=== PATIENT | male | born 1990 | race Two or more races ===

== ENCOUNTER → 2024-10-18 | Outpatient (CLI) | payer OTHER, SELFPAY ==
--- NOTE | 2024-10-18 16:00 | XR_ITS ---
Examination: MRI brain without intravenous contrast. Date and time of exam: October 18, 2024, 1618 hours INDICATIONS: Seizure August 21, 2024, headaches years Technique: Multiple axial and sagittal images of the brain obtained. Siemens high-resolution 1.5 Monique short bore scanners utilized. Sagittal sections, T1-weighted, TR 500, TE 14, are performed. Axial sections proton-density and T2-weighted have been obtained. Inversion recovery axial images, TR 9, 260, TE 111, TI 2500. Diffusion weighted images, axial sections, TR 4800, TE 128, B value 1000 Axial sections, ADC map, TR 4800, TE 128 Findings: Enlargement of the sella turcica is not present. The optic chiasm and infundibular are not remarkable. Prepontine and interpeduncular cisterns are not enlarged. There is no localized enlargement of the medulla or dave. Fourth ventricle and cerebellar tonsils appear normal in position. No subacute area of hemorrhage density is seen. Mass in the cerebellopontine angle region is not evident. Globes symmetrical. Orbital musculature including medial lateral rectus muscles do not exhibit abnormality. Diffusion-weighted images demonstrate no focus of restricted diffusion.. Increased white matter signal not seen. Mass effect upon the ventricular system is not identified. Impression: Negative for acute hemorrhage mass effect or midline shift No acute infarct No MR findings diagnostic for demyelinating disease
== END | disposition home or self-care (01) ==
LOC: SMRI 15:45
PROVIDERS: Referring Provider Nurse Practitioner Primary Care; Visit Provider Nurse Practitioner Primary Care
DX: G40.89 Other seizures (principal)
CPT/HCPCS: 70551

== ENCOUNTER 2024-10-24 04:34 | Emergency (ER) | payer OTHER, SELFPAY ==
[2024-10-24 04:35] VITALS: BP 115/65; PULSE 110; RESP 17; TEMP 36.5; O2SAT 95
--- NOTE | 2024-10-24 04:35 | EDNOTE_ITS ---
ED Seizures RME/HPI General Stated Complaint: SEIZURES Arrival date/time: 10/24/24 04:34 RME / HPI RME / HPI Narrative: This section includes all my notes and documentations, including HPI, PE, and ED course. Ben Varela MD HPI: 34yo male ANNE from home here after a seizure. Per EMS, patient was found to be shaking and posturing in bed witnessed by his just BUSINESS INTELLIGENCE ETL DEVELOPER. First seizure occurred about a month ago. He is not on any seizure medications. Patient currently has a headache. No tongue biting or incontinence. Brain MRI was negative several days ago. No other complaints reported. ROS: All negative except as documented in HPI. Physical Exam: General: Alert and oriented. No acute distress when remaining still. Eyes: Conjunctivae and lids clear. ENT: No nasal congestion. Neck: Supple. Heart: RRR. Lungs: No respiratory distress. Good air movement. No rhonchi, wheezing, rales. Abdomen: Soft and nontender. Normal bowel sounds. No distension. No rebound or guarding. Back: No CVA tenderness. Skin: Warm and dry. Neuro: Alert and oriented X 3. Cranial nerves II to XII grossly normal. No peripheral motor deficits. I reviewed EMS notes. I ordered diagnostic tests, Tylenol with Codeine, NS, Toradol, Keppra, and Zofran. At 6 AM on 10/24/2024, the care of the patient was transferred to Dr. Barreto. Ben Varela MD Related Data Previous Rx's ?Medication ?Instructions ?Recorded penicillin V potassium 500 mg 500 mg PO QID ##40 09/20 tablet Review of Systems Review of Systems Systems Reviewed: All systems reviewed, normal except as documented ED Exam Narrative Physical exam: As noted in HPI. Course Quality Measures none Orders Category Date Time Status Bedside COVID-19 Antigen Test NOW Care 10/24/24 04:37 Active Bedside Influenza A&B Antigen Test NOW Care 10/24/24 04:37 Active EKG (ED ONLY) *Do not use* NOW Care 10/24/24 04:38 Active Saline [Insert IV] NOW Care 10/24/24 04:37 Active Straight [In and Out Catheter] X1 Care 10/24/24 04:37 Active EKG (ED Only) Stat Exams 10/24/24 04:38 Ordered Alcohol, Blood Medical Stat Lab 10/24/24 04:58 Received BMP [Basic Metabolic Panel] Stat Lab 10/24/24 04:58 Received CBC Stat Lab 10/24/24 04:58 Received Drug Screen,Urine Stat Lab 10/24/24 04:38 Ordered Magnesium Stat Lab 10/24/24 04:58 Received Troponin I Stat Lab 10/24/24 04:58 Received ACETAMINOPHEN w/COD 300-30 [Tylenol w/Cod #3] Med 10/24/24 04:37 Pending 2 tab PO X1 ONE Ketorolac Inj [Toradol Inj] Med 10/24/24 04:37 Once 30 mg IVP X1 ONE Ondansetron Inj [Zofran Inj] Med 10/24/24 04:37 Once 4 mg IVP X1 ONE Sodium Chloride 0.9% 1000 ml [Ns] 1,000 ml Med 10/24/24 04:37 Ordered IV 999 mls/hr levETIRAcetam INJ [Keppra Inj] Med 10/24/24 04:37 Once 2,000 mg IVP X1 ONE Vital Signs Vital signs: Vital Signs Temperature 97.7 F 10/24/24 04:35 Pulse Rate 110 H 10/24/24 04:35 Respiratory Rate 17 10/24/24 04:35 Blood Pressure 115/65 10/24/24 04:35 Pulse Oximetry (%) 95 10/24/24 04:35 Oxygen Delivery Method Room Air 10/24/24 04:35 Seizure MDM Narrative MDM Narrative:: 34yo male BIBA from home here after a seizure. Per EMS, patient was found to be shaking and posturing in bed witnessed by his just BUSINESS INTELLIGENCE ETL DEVELOPER. First seizure occurred about a month ago. He is not on any seizure medications. Patient currently has a headache. No tongue biting or incontinence. Brain MRI was neg ative several days ago. No other complaints reported. Patient data External records reviewed:: [facility] previous records (Per chart review, patient has no previous ED visits or admissions to this facility. Reviewed outpatient brain MRI from 10/18/24.) and EMS form Clinical information provided by:: patient and EMS Social determinants that could affect healthcare access:: none Patient has the following chronic illnesses:: none How is presenting disease/condition affected by chronic disease/condition?: no chronic disease Evaluation data The following diagnostics were reviewed and interpreted by me:: lab results Lab and/or radiology exams considered but not ordered:: none Interpretation Summary: Diagnostic test results are pending. Medications / Prescriptions Medications or Prescriptions considered but not ordered:: none Medication administrations:: Medication Administration History Acetaminophen/Codeine Phosphate (Acetaminophen W/Cod 300-30 Tablet) 2 tab PO X1 ONE Stop: 10/24/24 04:38 Sodium Chloride (Ns) 1,000 mls @ 999 mls/hr IV .Q1H1M ONE Stop: 10/24/24 05:37 Ketorolac Tromethamine (Ketorolac Inj 30 Mg/Ml Vial) 30 mg IVP X1 ONE Stop: 10/24/24 04:38 Levetiracetam (Levetiracetam Inj 100 Mg/Ml Vial 5ml) 2,000 mg IVP X1 ONE Stop: 10/24/24 04:38 Ondansetron HCl (Ondansetron Inj 2 Mg/Ml Inj 2 Ml) 4 mg IVP X1 ONE; Protocol Stop: 10/24/24 04:38 I ordered Tylenol with Codeine, NS, Toradol, Keppra, Zofran. Consultations Consultation(s) initiated? (list below): No Diagnosis Seizure Differential Diagnosis: intractable seizure disorder, focal seizure, generalized seizure, epileptic seizure and status epilepticus Most likely diagnosis given after review of the tests above:: Recurrent seizure. Admission Indicated Admission indicated?: not indicated Explain why admission is indicated or not indicated:: Diagnostic test results are pending. Admission Request Was there a request for admission?: No Disposition Plan Disposition Plan: other (specify) (Signed out to Dr. Barreto at 6 AM.) Discharge Plan Prescriptions/Referrals Prescriptions/Med Rec: No Action penicillin V potassium 500 MG tablet 500 mg PO QID Qty: 40 0RF Referrals: No Primary/Family,Physician [Primary Care Provider] - In 1 week Problem List Clinical Impression: Seizure Patient/Caregiver Discharge Instructions Print Language: Malaysian
[2024-10-24 04:37] VITALS: BMI 30.1
--- NOTE | 2024-10-24 04:38 | EKG_ITS ---
[facility] Test Date: 2024-10-24 Pat Name: FRANCESCA JETER Department: Room: - Gender: Male Cath Lab Tech: : [id number] Requested By: Ben Chaudhari Order Number: [id number] Reading MD: Ben Chaudhari Measurements Intervals [place] Rate: 85 P: 31 AL: 162 QRS: 75 QRSD: 96 T: 38 QT: 357 QTc: 427 Interpretive Statements SINUS RHYTHM No previous ECG available for comparison /store/S0/[id number]/ecg/[id number].pdf
[2024-10-24 05:11] LABS: Basophils # (Auto) 0.0 Thou/mm3 (0.0-0.2); Basophils % (Auto) 1 % (0-2.5); Eosinophils # (Auto) 0.1 Thou/mm3 (0.0-0.5); Eosinophils % (Auto) 1 % (0-10); Hematocrit 43.5 % (41.0-53.0); Hemoglobin 15.5 g/dL (13.5-16.0); Immature Granulocytes Auto 0.05 Thou/mm3 (0.00-0.00); Lymphocytes # (Auto) 2.4 Thou/mm3 (1.0-4.8); Lymphocytes % (Auto) 31 % (10-50); Mean Corpuscular HGB Conc 35.6 g/dl (31.0-37.0); Mean Corpuscular Hemoglobin 32.0 pg (25.0-35.0); Mean Corpuscular Volume 90 fL (80-100); Monocytes # (Auto) 0.5 Thou/mm3 (0.0-0.8); Monocytes % (Auto) 7 % (0-12); Neutrophils # (Auto) 4.6 Thou/mm3 (1.8-7.7); Neutrophils % (Auto) 60 % (37-80); Nucleated Red Blood Cell # 0.00 Thou/mm3 (0.00-0.00); Nucleated Red Blood Cell % 0 /100 WBC (0); Platelet Count 236 Thou/mm3 (140-440); RDW Standard Deviation 39.8 fL (35.1-43.9); Red Blood Count 4.84 Miln/mm3 (4.50-5.90); White Blood Count 7.7 Thou/mm3 (3.8-10.6)
[2024-10-24 05:14] VITALS: PULSE 104; RESP 18; O2SAT 97
[2024-10-24] MEDS: SODIUM CHLORIDE 0.9% 1000 ML 1,000 ML 999 ML IV (05:37)
[2024-10-24 05:38] LABS: Alcohol, Blood Medical < 3.0 mg/dL (0-10.0); Anion Gap 9 (7-16); BUN/Creatinine Ratio 10 Ratio (12-20); Blood Urea Nitrogen 11 mg/dL (9-23); Calcium 8.9 mg/dL (8.3-10.6); Carbon Dioxide 25.6 mMol/L (20.0-31.0); Chloride 105 mMol/L (98-107); Creatinine (Component) 1.1 mg/dL (0.6-1.3); Estimated Creatinine Clearance 107.5 mL/min (>60); Glucose 110 mg/dL (74-106); Magnesium 2.1 mg/dL (1.6-2.6); Osmolality,Calculated 279 (275-295); Potassium 3.9 mMol/L (3.4-5.1); Sodium 140 mMol/L (136-145); Troponin I < 0.002 ng/mL (0.0-0.045); eGFR > 60 See Note
[2024-10-24] MEDS: KETOROLAC INJ 30 MG/ML VIAL IVP (05:38)
[2024-10-24] MEDS: ONDANSETRON INJ 2 MG/ML INJ 2 ML 4 MG IVP (05:39)
[2024-10-24] MEDS: levETIRAcetam INJ 100 MG/ML VIAL 5ML 2000 MG IVP (05:40)
[2024-10-24] MEDS: ACETAMINOPHEN 500 MG TABLET 1000 MG PO (05:42)
[2024-10-24 05:50] VITALS: BP 111/78; PULSE 88; RESP 14; TEMP 37; O2SAT 99
[2024-10-24 07:01] LABS: Amphetamine/Methamp Scrn,U Negative (Negative); Barbiturate Screen,Urine Negative (Negative); Benzodiazepines Screen,Urine Negative (Negative); Benzoylecgonine Screen, Ur Negative (Negative); Fentanyl Screen,Urine Negative (Negative); Opiate Screen,Urine Negative (Negative); THC Screen,Urine Negative (Negative)
--- NOTE | 2024-10-24 07:03 | EDNOTE_ITS ---
Emergency Room Addendum Addendum Narrative: PE: Gen: A&O X 3, NAD HEENT: NCAT, EOMI, Pupils reactive KORTNEY, not icteric. External ears normal. No rhinorrhea. Moist mucous membranes, abrasion in R lateral tongue. Neck: Supple, full range of motion, no observable masses, No meningeal sign. Lungs: No Respiratory distress, clear bilateral. CV: RRR, no murmurs. Abdomen: Soft, nondistended, No rebound tenderness. MSK: No joint swelling, no redness, peripheral pulses presents, lumbar with no edema. Skin: No rashes, petechiae, lesions.. Neuro: No focal neurological deficits appreciated, sensory and motor intact. Psych: Cooperative, appropriate mood and effect. 6:00: Care assumed from freight air brake fitter ER physician. 6:40: Patient was reassessed after labs and diagnostic imaging was reviewed. Patient was resting comfortably in bed and had no new complaints at this time.He still had some headaches, but otherwise no other complaints. Patient's was at bedside and stated that patient has had episodes before on August 21 and [facility]. Suffers from PTSD, but does not receive any treatment. UA was negative. 7:25: Patient reevaluated. He was feeling okay. U-Tox was negative. At this time patient is undergoing outpatient workup for possible seizures and has diagnosis of PTSD and given symptoms have occurred in the past and have continuously worsened this could possibly be night terrors secondary to PTSD. Seizures can still not be ruled out until proper workup is done which is currently being done outpatient. Advised not to drive, swim alone, or use heavy machinery until seen by primary care physician. Case disclosed with Attending Dr. Estevan Rojas PGY2 Disclaimer: Even though this this note was dictated by speech recognition and even though it was carefully revised there may still be minor errors in commercial loan administrator due to voice recognition software.
[2024-10-24 07:22] VITALS: BP 95/64; PULSE 90; RESP 19; TEMP 36.7; O2SAT 99
[2024-10-24 08:00] VITALS: BP 94/75; PULSE 80; RESP 19; O2SAT 97
== END 2024-10-24 08:01 | disposition home or self-care (01) ==
PROVIDERS: Emergency Medicine; Emergency Provider Emergency Medicine
DX: R56.9 Unspecified convulsions (principal); R51.9 Headache, unspecified
CPT/HCPCS: 36415; 80048; 80307; 80320; 83735; 84484; 85025; 87400; 87811; 93005; 96361; 96374; 96375; 99283; J1885; J1953; J2405; J7030; A9270; G0480